=== PATIENT | male | born 1985 | race Caucasian/White ===

== ENCOUNTER → 2022-07-06 | Day surgery (SDC) | payer OTHER ==
[2022-06-29 15:28] VITALS: BMI 31.1
[2022-07-06 11:35] VITALS: BP 157/79; PULSE 56; RESP 20; TEMP 98.1
== END | disposition home or self-care (01) ==
LOC: FASU-ENDO 11:20
PROVIDERS: ATTEND Internal Medicine Gastroenterology
PROC: 0DJ08ZZ Inspection of Upper Intestinal Tract, Via Natural or Artificial Opening Endoscopic (ICD-10-PCS; principal; 2022-07-06)
DX: Z53.8 Procedure and treatment not carried out for other reasons (principal); D64.9 Anemia, unspecified

== ENCOUNTER 2022-08-03 10:08 | Day surgery (SDC) | payer OTHER ==
[2022-07-21 14:55] VITALS: BMI 30.5
[2022-08-03 12:40] VITALS: TEMP 98.4
[2022-08-03 12:43] VITALS: BP 132/60; PULSE 54; RESP 19
== END 2022-08-03 12:35 | disposition home or self-care (01) ==
LOC: FASU-ENDO 10:08
PROVIDERS: ATTEND Internal Medicine Gastroenterology
PROC: 0DB78ZX Excision of Stomach, Pylorus, Via Natural or Artificial Opening Endoscopic, Diagnostic (ICD-10-PCS; 2022-08-03)
PROC: 0DB48ZX Excision of Esophagogastric Junction, Via Natural or Artificial Opening Endoscopic, Diagnostic (ICD-10-PCS; 2022-08-03)
PROC: 0DB98ZX Excision of Duodenum, Via Natural or Artificial Opening Endoscopic, Diagnostic (ICD-10-PCS; principal; 2022-08-03 11:48)
DX: K29.70 Gastritis, unspecified, without bleeding (principal); B96.81 Helicobacter pylori [H. pylori] as the cause of diseases classified elsewhere; K22.89 Other specified disease of esophagus
CPT/HCPCS: 88305-TC; 88341-TC; 88342-TC

== ENCOUNTER 2022-11-23 09:40 | Day surgery (SDC) | payer OTHER ==
[2022-11-17 13:44] VITALS: BMI 30.5
[2022-11-23 09:58] VITALS: TEMP 98
[2022-11-23 11:28] VITALS: PULSE 46; RESP 16
[2022-11-23 13:21] VITALS: BP 133/61
== END 2022-11-23 11:50 | disposition home or self-care (01) ==
LOC: FASU-ENDO 09:40
PROVIDERS: ATTEND Internal Medicine Gastroenterology
PROC: 0DJD8ZZ Inspection of Lower Intestinal Tract, Via Natural or Artificial Opening Endoscopic (ICD-10-PCS; principal; 2022-11-23 11:10)
DX: Z12.11 Encounter for screening for malignant neoplasm of colon (principal); D64.9 Anemia, unspecified; K64.1 Second degree hemorrhoids